=== PATIENT | male | born 1995 | race Caucasian/White ===

== ENCOUNTER 2017-02-11 12:40 | Emergency (ER) | payer BC, OTHER ==
[2017-02-11] MEDS ORDERED: Lidocaine 1% 20 ML MDV INJECT ONE ×2 (13:11→13:18)
[2017-02-11] MEDS ORDERED: Bacitracin Oint 1 GM U/D Packet TOP ONE (13:11)
[2017-02-11] MEDS ORDERED: Diphtheria,Pertussis(Acell),Tetanus Vaccine 0.5 ML Syringe IM ONE (13:15)
[2017-02-11] MEDS: cefTRIAXone 1,000 MG in Lidocaine 1% 4 ML IM ONE ×2 (13:27→13:31)
--- NOTE | 2017-02-11 13:55 | EDM.PDOC ---
ED HPI GENERAL MEDICAL PROBLEM - General Chief Complaint: Laceration Stated Complaint: CUT LEFT HAND Time Seen by Provider: 02/11/17 12:48 Source of Information: Reports: Patient History Limitations: Reports: No Limitations - History of Present Illness INITIAL COMMENTS - FREE TEXT/NARRATIVE: Presents reporting that he was hammering at work and he was off center of the object he was hammering and the hammer glanced the object and then hit the area between the left thumb and index finger. left hand Pain Score (Numeric/FACES): 2 - Related Data Allergies Allergy/AdvReac Type Severity Reaction Status Date / Time No Known Allergies Allergy Verified 02/11/17 12:50 Home Meds: Home Meds . [No Known Home Meds] 02/11/17 [History] Past Medical History - Past Health History Medical/Surgical History: Denies Medical/Surgical History Social & Family History - Family History Family Medical History: Noncontributory - Tobacco Use Smoking Status *Q: Never Smoker - Recreational Drug Use Recreational Drug Use: No ED ROS GENERAL - Review of Systems Review Of Systems: ROS reveals no pertinent complaints other than HPI. ED EXAM, SKIN/RASH Exam: See Below Exam Limited By: No Limitations General Appearance: Alert, No Apparent Distress Ears: Normal External Exam Nose: Normal Inspection Throat/Mouth: Normal Inspection Head: Atraumatic, Normocephalic Neck: Normal Inspection Respiratory/Chest: No Respiratory Distress Cardiovascular: Normal Peripheral Pulses GI/Abdominal: Soft Extremities: Normal Inspection Neurological: Alert, Oriented Psychiatric: Normal Affect, Normal Mood Skin: Warm, Dry, Intact, Normal Color, No Rash Location, Skin: Upper Extremity, Left (1 cm skin laceration between the left thumb and index finger with a skin avulsion around it. Full range of motion without hesitation or limitation to the left thumb and first finger. CMS intact distally. No bleeding) ED SKIN PROCEDURES - Laceration/Wound Repair Left Finger Lac/Wound length In cm: 1 Distal NVT: Neuro & Vascular Intact, No Tendon Injury Anesthetic Type: Local Local Anesthesia - Lidocaine (Xylocaine): 1% Plain Local Anesthetic Volume: 2cc Skin Prep: Chlorhexidine (Hibiciens) Exploration/Debridement/Repair: Wound Explored, in a Bloodless Field, Explored to Base Closed with: Sutures Suture Size: 4-0 # of Sutures: 2 Suture Type: Nylon, Interrupted Course - Vital Signs Last Recorded V/S: Last Vital Signs Temp 36.5 C 02/11/17 12:54 Pulse 113 H 02/11/17 12:54 Resp 16 02/11/17 12:54 BP 159/104 H 02/11/17 12:54 Pulse Ox 97 02/11/17 12:54 - Orders/Labs/Meds Orders: Active Orders 24 hr Category Date Time Status Vaccines to be Administered [RC] PER UNIT ROUTINE Care 02/11/17 13:15 Active Meds: Medications Discontinued Medications Generic Name Dose Route Start Last Admin Trade Name [place] PRN Reason Stop Dose Admin Bacitracin 1 dose 02/11/17 13:11 02/11/17 13:26 Bacitracin Oint 1 Gm TOP 02/11/17 13:12 1 dose ONETIME ONE Administration Diphtheria/Tetanus/Acell Pertussis 0.5 ml 02/11/17 13:15 02/11/17 13:28 Adacel IM 02/11/17 13:16 0.5 ml .ONCE ONE Administration Ceftriaxone Sodium 1,000 mg/ 4 mls @ 4 mls/sec 02/11/17 13:18 02/11/17 13:31 Lidocaine HCl IM 02/11/17 13:19 Not Given ONETIME ONE Lidocaine HCl 20 ml 02/11/17 13:11 02/11/17 13:26 Xylocaine 1% INJECT 02/11/17 13:12 20 ml ONETIME ONE Administration Lidocaine HCl 2.1 ml 02/11/17 13:18 02/11/17 13:48 Xylocaine 1% INJECT 02/11/17 13:19 Not Given ONETIME ONE Departure - Departure Time of Disposition: 13:55 Disposition: Home, Self-Care 01 Condition: Good Clinical Impression: Laceration - Discharge Information Referrals: PCP,None [Primary Care Provider] - [facility] [Outside] [facility] [Outside] Forms: ED Department Discharge Additional Instructions: 1. Watch for signs of infection redness swelling or pussy drainage. Report promptly. 2. Keep covered while at work. Change dressing twice daily and apply bacitracin 3. Suture removal 10-14 days - My Orders Last 24 Hours: My Active Orders 02/11/17 13:15 Vaccines to be Administered [RC] PER UNIT ROUTINE - Assessment/Plan Last 24 Hours: My Active Orders 02/11/17 13:15 Vaccines to be Administered [RC] PER UNIT ROUTINE
[2017-02-11 14:19] VITALS: BP 156/100
== END 2017-02-11 14:13 | disposition home or self-care (01) ==
LOC: MW.ED 12:40
DX: S61.412A Laceration without foreign body of left hand, initial encounter (principal); Z23 Encounter for immunization; W22.8XXA Striking against or struck by other objects, initial encounter; Y99.0 Civilian activity done for income or pay
CPT/HCPCS: 12001; 90471; 90715; 99283; 99283-25; J0696